=== PATIENT | female | born 1970 | race Caucasian/White ===

== ENCOUNTER → 2016-12-27 | Outpatient (CLI) | payer OTHER ==
--- NOTE | 2016-12-27 17:17 | Diagnostic Imaging Report ---
PROCEDURE: US Thyroid. TECHNIQUE: Multiple real-time grayscale images were obtained of the thyroid in various projections. INDICATION: History of right lobectomy. COMPARISON: 09/28/2015. FINDINGS: A small lymph node in the left neck lateral to the common carotid artery measured 1.5 x 0.9 x 0.5 cm and showed no morphological or architectural distortion and has an echogenic fatty te and is unchanged from prior and appeared normal. The left thyroid lobe is 3.9 x 1.6 x 1.7 cm, is nonfocal, homogeneous in echotexture and showed normal color flow. The right lobe is surgically absent. IMPRESSION: Unremarkable appearance of the nonfocal left lobe. Small left cervical lymph node showed no suspicious characteristics or change from prior. Dictated by: Dictated on workstation # [id number]
== END ==
LOC: RAD 11:44
PROVIDERS: ATTEND Nurse Practitioner Family
DX: R13.19 Other dysphagia (principal)
CPT/HCPCS: 76536